=== PATIENT | male | born 1995 | race Caucasian/White ===

== ENCOUNTER 2016-11-07 20:35 | Emergency (ER) | payer BC ==
[~2016-11-07] VITALS: Ht 185.4 cm; Wt 107.1 kg
[2016-11-07 20:38] VITALS: TEMP 36.7; Ht 185.4 cm; Wt 107.1 kg
[2016-11-07] MEDS ORDERED: OXYCODONE IR HOME PACK PO ONE (21:00)
--- NOTE | 2016-11-07 21:03 | EMERGENCY ROOM VISIT NOTE ---
ED Visit Note First contact with patient: 20:43 CHIEF COMPLAINT: Left lower dental pain 1 week HISTORY OF PRESENT ILLNESS: Patient is an otherwise healthy 21-year-old white male who presents to the emergency department accompanied by his for evaluation of left lower dental pain. He states that the tooth broke a couple of months ago, but has only become painful in the last week. He has appointment with Dr. Parker on November 16. He states that they called in a prescription for penicillin which she started yesterday. He has been rinsing with salt water, taking Tylenol, Aleve and ibuprofen without relief of his discomfort. He states it feels better when it is in cold water. He has been chewing on frozen washcloths. He rates his pain an 8/10. He denies any past, bladder foul tasting fluid from the mouth. No facial swelling. REVIEW OF SYSTEMS: Review of systems as per HPI. All other systems reviewed were negative. At least 6 systems reviewed. PMH: Electronic medical records are reviewed and summarized as above/below. See Problem List. SOCIAL HISTORY: Patient lives at home with his family. Positive tobacco use. He is employed.. PHYSICAL EXAM: Vital Signs: Reviewed Nurse's notes. CONSTITUTIONAL: Patient is a well-appearing 21-year-old white male who is awake and alert and in no acute distress. Vital signs are stable. EARS: Tympanic membranes intact, not inflamed, have normal contour. External canals clear. MOUTH: Overall the patient has good. The left lower molar in question has an obvious cavity, and fractured cusp and is tender to percussion. There is slight swelling along the gumline although no focal abscess. Mucous membranes moist, no lesions, tongue and gums appear normal. THROAT: No pharyngeal injection, exudates, or tonsillar hypertrophy. Airway is patent. No trismus noted. FACE: No facial swelling is appreciated. No cellulitic changes. NECK: No lymphadenopathy. . ED course: The patient was seen and assessed as above. Patient was reviewed in the [facility] Prescription Drug Monitoring Program, and there was no record noted. He was given an oxycodone home pack and a prescription to use. He will complete the course of antibiotics as prescribed and follow-up with his dentist. He does not have any evidence for facial cellulitis or Saud's angina at this time.. Current/Historical Medications Scheduled Penicillin V Potassium (Veetids), 500 MG PO QID Scheduled PRN Oxycodone Immediate Rel Tab (Roxicodone Ir), 1-2 TAB PO Q4H PRN for Severe Pain Miscellaneous Medications None (Patient States No Home Meds) None (Patient States No Home Meds) Allergies Coded Allergies: No Known Allergies (Unverified , 11/07/16) Vital Signs Date Time Temp Pulse Resp B/P Pulse Ox O2 Delivery O2 Flow Rate FiO2 11/07/16 20:38 36.7 63 16 189/91 99 Room Air Departure Information Impression Primary Impression: Dentalgia Prescriptions Oxycodone Immediate Rel Tab (ROXICODONE IR) 5 Mg Tab 1-2 TAB PO Q4H Y for Severe Pain, #30 TAB For Initial Treatment Prov: Kennedi José PA 11/07/16 Referrals No Doctor, Assigned (PCP) Patient Instructions [facility] Additional Instructions Finish antibiotics as previously prescribed by your dentist. Oxycodone (OxyIR) 5mg: Take 1-2 pills every four hours for breakthrough pain. Avoid alcohol, operating machinery or dangerous equipment, working on ladders or roofs, DRIVING, or situations where being under the influence may be dangerous. It is recommended to use an [id number] stool softener such as Colace, 100mg twice daily while taking this medication to avoid constipation. Ibuprofen(Motrin, Advil) may be used for fever or pain. Use 600mg every six hours as needed. Take with food. Avoid using more than 2400mg in a 24 hour period. Do not use 2400mg per day for more than three consecutive days without physician direction. Prolonged inappropriate use can lead to stomach upset or ulcers. (AND/OR) Acetaminophen(Tylenol) may be used for fever or pain. Use 1000mg every six hours as needed. Avoid using more than 4000mg in a 24 hour period. Saltwater gargles after meals and before bedtime. Soft foods. Orajel/Anbesol/clove oil as needed for discomfort. Followup with your dentist as scheduled for definitive management. You may also follow up with your primary care physician for pain/care management until you can be seen by your dentist.
[2016-11-07] MEDS ORDERED: PENI-82 PO (21:19)
[2016-11-07] MEDS ORDERED: OXYC1TAB3 PO (21:20)
[2016-11-07 21:29] VITALS: BP 120/93; PULSE 54; O2SAT 97
== END 2016-11-07 21:31 | disposition home or self-care (01) ==
LOC: C.EDB 20:36 → C.EDD 21:31
DX: K08.89 Other specified disorders of teeth and supporting structures (principal); Z72.0 Tobacco use